=== PATIENT | female | born 1965 | race Caucasian/White ===

== ENCOUNTER → 2016-09-11 | Outpatient (CLI) | payer OTHER | LOC: BMCIMAGING 07:40 | PROVIDERS: ATTEND Nurse Practitioner Adult Health | DX: Z12.31 Encounter for screening mammogram for malignant neoplasm of breast (principal) | CPT/HCPCS: G0202 ==

== ENCOUNTER 2017-03-09 11:39 | Inpatient (IN) | payer OTHER ==
[2017-03-09 12:06] LABS: PLATELET COUNT 254 10^3/uL (150-400)
[2017-03-09] MEDS ORDERED: ONDANSETRON 4 MG/2 ML VIAL ONE (12:08)
[2017-03-09] MEDS ORDERED: HYDROmorphONE/DILAUDID 1 MG/ML INJ ONE (12:09)
[2017-03-09] MEDS ORDERED: NS 1,000 ML IV ONE (12:13)
[2017-03-09] MEDS ORDERED: HYDROmorphONE/DILAUDID 1 MG/ML INJ IVP ONE ×2 (12:13→12:28)
[2017-03-09] MEDS ORDERED: ONDANSETRON 4 MG/2 ML VIAL IVP ONE ×2 (12:14→14:12)
--- NOTE | 2017-03-09 12:28 | EDPHY ---
H & P Stated Complaint: bright red blood BM then abd pain 30 min EPIC [facility] SPECIALIST - Personal History LMP (Females 10-55): Post Menopausal Current Tetanus/Diphtheria Vaccine: Yes Current Tetanus Diphtheria and Acellular Pertussis (TDAP): Yes - Medical/Surgical History Hx Asthma: No Hx Chronic Respiratory Disease: No Hx Diabetes: No Hx Cardiac Disease: No Hx Renal Disease: No Hx Cirrhosis: No Hx Alcoholism: No Hx HIV/AIDS: No Hx Splenectomy or Spleen Trauma: No Other PMH: PMH: angioedema, hypothyriodism, - Social History Smoking Status: Never smoked Time Seen by Provider: 03/09/17 12:07 HPI/ROS: Chief Complaint: Abdominal pain HPI: 51-year-old woman had sudden onset of left lower quadrant abdominal pain this morning. Does not have a history of the same. Is a 1010. There are no aggravating or alleviating factors. She cannot find a position of comfort. She did have a bowel movement with some bright red blood in it this morning as well. No nausea or vomiting. No diarrhea. No urinary urgency or frequency. No melena. No fevers or chills. No chest pain or shortness of breath. ROS: 10 point Review of Systems is negative except as noted in the HPI. PMH: Angioedema, hypothyroidism Social History: No smoking, no alcohol, no recreational drug use Family History: non-contributory Physical Exam: Gen: Awake, Alert, uncomfortable appearing HEENT: Nose: no rhinorrhea Eyes: PERRLA, EOMI Mouth: Moist mucosa Neck: Supple, no JVD Chest: nontender, lungs clear to auscultation Heart: S1, S2 normal, no murmur Abd: Soft, non-tender, no guarding Back: no CVA tenderness, no midline tenderness Ext: no edema, non-tender Skin: no rash Neuro: CN II-XII intact, Sensation grossly intact, Strength 5/5 in bilateral upper and lower extremities (Bebo Ayers) Constitutional: Initial Vital Signs Temperature (C) 36.3 C 03/09/17 11:42 Heart Rate 57 L 03/09/17 11:42 Respiratory Rate 22 H 03/09/17 11:42 Blood Pressure 101/69 03/09/17 11:42 O2 Sat (%) 100 03/09/17 11:42 O2 Delivery Mode Room Air O2 (L/minute) 2 Allergies/Adverse Reactions: No Known Allergies Allergy (Verified 03/09/17 17:12) Home Medications: Medication Instructions Recorded Acetaminophen [Tylenol 325mg (*)] 325 mg PO Q6H PRN 03/09/17 Cetirizine [ZyrTEC 10 mg (*)] 10 mg PO DAILY 03/09/17 Levothyroxine [Synthroid 112 mcg 112 mcg PO DAILY06 03/09/17 (*)] Multivitamins [Multivitamin (*)] 1 each PO DAILY 03/09/17 Tamsulosin HCl [Flomax 0.4 MG (*)] 0.4 mg PO DAILY #30 cap 03/10/17 oxyCODONE IR [Oxycodone Ir (*)] 5 - 10 mg PO Q4 PRN #30 tab 03/10/17 Medical Decision Making - Diagnostics Imaging: Discussed imaging studies w/ foot press operator Radiologist ED Course/Re-evaluation: 3:00 p.m.-this patient was signed over to me at shift change to check the urinalysis. A urinalysis reveals a urinary tract infection. Urine culture sent. Discussed with the patient, she is currently comfortable and the pain is well controlled with Toradol. However, she continues to have multiple episodes of vomiting despite Zofran 4 mg IV x2. Because of persistent vomiting and urinary tract infection associated with obstructive uropathy, this patient will be admitted. Rocephin 1 g IV and Phenergan 12.5 mg IV given. The hospitalist service was consulted for admission. Consulted with ARNULFO Oakley, urology. Urology will consult during admission. (Basilia Cuenca) Patient has a 3-5 mm mid left ureteral stone with moderate hydro and perinephric stranding. Pain is controlled. Still awaiting a urinalysis results to rule out urinary tract infection. Patient signed out to Dr. Cuenca pending urinalysis results. (Bebo Ayers) Differential Diagnosis: Differential diagnosis includes though it is not limited to appendicitis, cholecystitis, diverticulitis, pyelonephritis, bowel perforation, small bowel obstruction. (Basilia Cuenca) - Data Points Laboratory Results: Laboratory Results 03/09/17 11:55 03/09/17 11:55 Medications Given: Discontinued Medications Enoxaparin Sodium (Lovenox) 40 mg SC DAILY TOM Stop: 09/06/17 08:59 Last Admin: 03/10/17 09:43 Dose: 40 mg Fentanyl (Sublimaze) 100 mcg IVP EDNOW ONE Stop: 03/09/17 13:07 Last Admin: 03/09/17 13:08 Dose: 100 mcg Hydromorphone HCl (Dilaudid) 0.5 mg IVP EDNOW ONE Stop: 03/09/17 12:14 Last Admin: 03/09/17 12:16 Dose: 0.5 mg Hydromorphone HCl (Dilaudid) 1 mg IVP EDNOW ONE Stop: 03/09/17 12:29 Last Admin: 03/09/17 12:29 Dose: 1 mg Sodium Chloride (Ns) 1,000 mls @ 0 mls/hr IV ONCE ONE PRN Reason: Wide Open Stop: 03/09/17 12:14 Last Admin: 03/09/17 12:16 Dose: 1,000 mls Ceftriaxone Sodium 1 gm/ (Sterile Water) 10 mls @ 150 mls/hr IV EDNOW ONE PRN Reason: Protocol Stop: 03/09/17 16:33 Last Admin: 03/09/17 17:04 Dose: 10 mls Sodium Chloride (1/2 Ns) 1,000 mls @ 125 mls/hr IV CONT TOM Stop: 09/05/17 17:59 Last Admin: 03/10/17 10:49 Dose: 1,000 mls Ceftriaxone Sodium 1 gm/ (Sterile Water) 10 mls @ 150 mls/hr IV DAILY TOM PRN Reason: Protocol Stop: 04/09/17 08:59 Last Admin: 03/10/17 08:28 Dose: 10 mls Ketorolac Tromethamine (Toradol) 15 mg IVP EDNOW ONE Stop: 03/09/17 12:49 Last Admin: 03/09/17 12:53 Dose: 15 mg Ketorolac Tromethamine (Toradol) 15 mg IVP Q6HRS [facility] Stop: 03/14/17 12:01 Last Admin: 03/10/17 12:19 Dose: 15 mg Levothyroxine Sodium (Synthroid) 112 mcg PO DAILY06 TOM Stop: 09/06/17 05:59 Last Admin: 03/10/17 06:17 Dose: 112 mcg Ondansetron HCl (Zofran) 4 mg IVP EDNOW ONE Stop: 03/09/17 12:15 Last Admin: 03/09/17 12:16 Dose: 4 mg Ondansetron HCl (Zofran) 4 mg IVP EDNOW ONE Stop: 03/09/17 14:13 Last Admin: 03/09/17 14:13 Dose: 4 mg Promethazine HCl (Phenergan) 6.25 mg IVP EDNOW ONE Stop: 03/09/17 16:32 Last Admin: 03/09/17 16:34 Dose: 6.25 mg Tamsulosin HCl (Flomax) 0.4 mg PO DAILY TOM Stop: 09/05/17 17:59 Last Admin: 03/10/17 08:28 Dose: 0.4 mg Departure - Departure Disposition: [facility] Acute Clinical Impression: Kidney stone UTI (urinary tract infection) Qualifiers: Urinary tract infection type: site unspecified Hematuria presence: without hematuria Qualified Code(s): N39.0 - Urinary tract infection, site not specified Vomiting Qualifiers: Vomiting type: unspecified Vomiting Intractability: non-intractable Nausea presence: with nausea Qualified Code(s): R11.2 - Nausea with vomiting, unspecified Condition: Fair
[2017-03-09] MEDS ORDERED: KETOROLAC 15 MG/1 ML SDV IVP ONE (12:48)
[2017-03-09] MEDS ORDERED: fentaNYL 100 MCG/2 ML INJ ONE (13:04)
[2017-03-09] MEDS ORDERED: fentaNYL 100 MCG/2 ML INJ IVP ONE (13:06)
[2017-03-09] MEDS ORDERED: cefTRIAXone 1 GM in STERILE WATER INJ 10 ML IV ONE (16:30)
[2017-03-09] MEDS ORDERED: PROMETHAZINE HCL 25 MG/ML INJ IVP ONE (16:31)
--- NOTE | 2017-03-09 17:46 | PDGENHP ---
History and Physical - Chief Complaint abdominal pain - History of Present Illness 51 y/o female with a history of hypothyroidism, angioedema, and Raynauds presents with left lower abdominal pain. She states it started one hour prior to arrival. It was sudden in onset, sharp, constant, without radiation, and a 10 /10. There are no aggravating or alleviating factors. Associated symptoms are nausea and vomiting. She denies dysuria, hematuria, increased urinary frequency or urgency, fevers, and changes in bowel habits. She denies previous episodes. She reports no personal history of kidney stones but does have a family history of them. In the ED she received Dilaudid/Fentanyl/Toradol and initially has some relief, however her pain returned. History Information - Allergies/Home Medication List Allergies/Adverse Reactions: No Known Allergies Allergy (Verified 03/09/17 17:12) Home Medications: Acetaminophen [Tylenol 325mg (*)] 325 mg PO Q6H PRN 03/09/17 [Last Taken 325MG] Cetirizine [ZyrTEC 10 mg (*)] 10 mg PO DAILY 03/09/17 [Last Taken 03/09/17] Levothyroxine [Synthroid 112 mcg (*)] 112 mcg PO DAILY06 03/09/17 [Last Taken ] Multivitamins [Multivitamin (*)] 1 each PO DAILY 03/09/17 [Last Taken 03/09/17] I have personally reviewed and updated: family history, medical history, social history, surgical history - Past Medical History Additional medical history: burning mouth syndrome - Surgical History Reports: no pertinent surgical hx - Family History Additional family history: kidney stones - Social History Smoking Status: Never smoked Alcohol Use: Occasionally Drug Use: None Review of Systems Review of Systems: ROS: 10pt was reviewed & negative except for what was stated in HPI & below Constitutional: Denies: chills, fever Physical Exam Physical Exam: Temp Pulse Resp BP Pulse Ox 36.3 C 63 16 110/65 95 03/09/17 12:00 03/09/17 17:28 03/09/17 17:28 03/09/17 17:28 03/09/17 17:28 Constitutional: no apparent distress, appears nourished, not in pain Eyes: PERRL, anicteric sclera, EOMI Ears, Nose, Mouth, Throat: moist mucous membranes, hearing normal, ears appear normal, no oral mucosal ulcers Cardiovascular: regular rate and rhythym, no murmur, rub, or gallop, No edema Respiratory: no respiratory distress, no rales or rhonchi, clear to auscultation Gastrointestinal: normoactive bowel sounds, soft, non-tender abdomen, no palpable masses, No guarding, No rebound Genitourinary: no bladder fullness, no bladder tenderness Skin: warm, normal color, no rashes or abrasions, no fluctuance, no induration, No mottled Musculoskeletal: full muscle strength, no muscle tenderness, normal joint ROM, no joint effusions Neurologic: AAOx3, CN II-XII Intact, No facial droop Psychiatric: interacting appropriately, not anxious, not encephalopathic, thought process linear Lymph, Heme, Immunologic: no cervical LAD, no supraclavicular LAD Lab Data & Imaging Review 03/09/17 11:55 03/09/17 11:55 WBC 7.99 10^3/uL (3.80-9.50) 03/09/17 11:55 RBC 4.36 10^6/uL (4.18-5.33) 03/09/17 11:55 Hgb 14.4 g/dL (12.6-16.3) 03/09/17 11:55 Hct 39.6 % (38.0-47.0) 03/09/17 11:55 MCV 90.8 fL (81.5-99.8) 03/09/17 11:55 MCH 33.0 pg (27.9-34.1) 03/09/17 11:55 MCHC 36.4 g/dL (32.4-36.7) 03/09/17 11:55 RDW 11.8 % (11.5-15.2) 03/09/17 11:55 Plt Count 254 10^3/uL (150-400) 03/09/17 11:55 MPV 9.4 fL (8.7-11.7) 03/09/17 11:55 Neut % (Auto) 51.7 % (39.3-74.2) 03/09/17 11:55 Lymph % (Auto) 37.2 % (15.0-45.0) 03/09/17 11:55 [place] % (Auto) 8.1 % (4.5-13.0) 03/09/17 11:55 Eos % (Auto) 1.6 % (0.6-7.6) 03/09/17 11:55 Baso % (Auto) 1.3 % (0.3-1.7) 03/09/17 11:55 Nucleat RBC Rel Count 0.0 % (0.0-0.2) 03/09/17 11:55 Absolute Neuts (auto) 4.13 10^3/uL (1.70-6.50) 03/09/17 11:55 Absolute Lymphs (auto) 2.97 10^3/uL (1.00-3.00) 03/09/17 11:55 Absolute Monos (auto) 0.65 10^3/uL (0.30-0.80) 03/09/17 11:55 Absolute Eos (auto) 0.13 10^3/uL (0.03-0.40) 03/09/17 11:55 Absolute Basos (auto) 0.10 10^3/uL (0.02-0.10) 03/09/17 11:55 Absolute Nucleated RBC 0.00 10^3/uL (0-0.01) 03/09/17 11:55 Immature Gran % 0.1 % (0.0-1.1) 03/09/17 11:55 Immature Gran # 0.01 10^3/uL (0.00-0.10) 03/09/17 11:55 Sodium 141 mEq/L (135-145) 03/09/17 11:55 Potassium 4.0 mEq/L (3.5-5.2) 03/09/17 11:55 Chloride 102 mEq/L (97-110) 03/09/17 11:55 Carbon Dioxide 24 mEq/l (22-31) 03/09/17 11:55 Anion Gap 15 mEq/L (8-16) 03/09/17 11:55 BUN 21 mg/dL (7-23) 03/09/17 11:55 Creatinine 0.9 mg/dL (0.6-1.0) 03/09/17 11:55 Estimated GFR > 60 03/09/17 11:55 Glucose 114 mg/dL (70-100) H 03/09/17 11:55 Calcium 10.0 mg/dL (8.5-10.4) 03/09/17 11:55 Beta HCG, Qual NEGATIVE 03/09/17 11:55 Urine Color YELLOW 03/09/17 15:30 Urine Appearance MODERATELY TURBID 03/09/17 15:30 Urine pH 7.0 (5.0-7.5) 03/09/17 15:30 Ur Specific [place] 1.025 (1.002-1.030) 03/09/17 15:30 Urine Protein 1+ (NEGATIVE) H 03/09/17 15:30 Urine Ketones 1+ (NEGATIVE) H 03/09/17 15:30 Urine Blood 3+ (NEGATIVE) H 03/09/17 15:30 Urine Nitrate NEGATIVE (NEGATIVE) 03/09/17 15:30 Urine Bilirubin NEGATIVE (NEGATIVE) 03/09/17 15:30 Urine Urobilinogen 2.0 EU (0.2-1.0) H 03/09/17 15:30 Ur Leukocyte Esterase NEGATIVE (NEGATIVE) 03/09/17 15:30 Urine RBC 50-182 /hpf (0-3) H 03/09/17 15:30 Urine WBC 50-182 /hpf (0-3) H 03/09/17 15:30 Ur Epithelial Cells TRACE /lpf (NONE-1+) 03/09/17 15:30 Urine Bacteria 1+ /hpf (NONE SEEN) H 03/09/17 15:30 Urine Glucose NEGATIVE (NEGATIVE) 03/09/17 15:30 Imaging Review: Impression: 1. Moderate left hydroureteronephrosis due to 3 x 4 x 5 mm calculus in the proximal to mid left ureter. Mild stranding and fluid surround the dilated renal pelvis and proximal left ureter. 2. No nephrolithiasis or right- sided calculi. 3. Constipation. Visualized and Interpreted Chest x-ray results: Yes Assessment & Plan Assessment: 51 y/o female presenting with: # Complicated UTI with 3 x 4 x 5 mm calculus in the proximal to mid left ureter with mild stranding and fluid surround the dilated renal pelvis and proximal left ureter. Plan: -urine culture -Start Rocephin 1gm IV [id number] -IV fluids -Supportive care with IV narcotics/antiemetics/toradol -urology was consulted by ED # Nausea and vomiting due to above Plan: -admit to inpatient
[2017-03-09] MEDS ORDERED: PROMETHAZINE HCL 25 MG/ML INJ IVP PRN (17:54)
[2017-03-09] MEDS ORDERED: HYDROmorphONE/DILAUDID 2 MG/ML INJ IVP PRN (17:54)
[2017-03-09] MEDS ORDERED: oxyCODONE IR 5 MG TAB PO PRN (17:54)
[2017-03-09] MEDS ORDERED: ACETAMINOPHEN 325 MG TAB PO PRN (17:54)
[2017-03-09] MEDS ORDERED: ONDANSETRON 4 MG/2 ML VIAL IVP PRN (17:54)
--- NOTE | 2017-03-09 18:21 | PDMN ---
Medical Necessity Medical necessity: C/M review: patient meets INPT criteria under [facility] M-320 Renal colic and kidney stones: Acute and persistent complicated urinary tract infection with 3 x 4 x 5 mm calculus in the proximal to mid left ureter with mild stranding and fluid surround the dilated renal pelvis and proximal left ureter on CT requiring planned Urology consult, urine culture, ongoing IV Ceftriaxone QD, IV 1/2 NS infusion 125 ml/hr., IV Dilaudid. comorbid hypothyroidism, angioedema, Raynauds, burning mouth syndrome. MD anticipates > 2 MN LOS for ongoing med for eval and TX of above.
[2017-03-09] MEDS: 1/2 NS 1,000 ML IV SCH (18:30)
[2017-03-09] MEDS: TAMSULOSIN HCL 0.4 MG CAP PO SCH (18:36)
--- NOTE | 2017-03-09 21:42 | GCON ---
[f rep st] CONSULTATION ADMISSION DIAGNOSIS: Left ureteral calculus with left-sided hydronephrosis. HISTORY OF PRESENT ILLNESS: This is a 51-year-old lady who is admitted because of unrelenting pain. Was seen in the emergency room and appropriate workup revealed a proximal ureteral calculus with hyd ronephrosis on the left side with some mild perinephric stranding. She had lab work that showed a cr eatinine of 0.9, a calcium of 10, white count of 14,400, hematocrit 39.6, glucose 114. CO2 was 24 an d BUN was 21. She had a urinalysis that showed nitrate negative with positive blood and negative glu cose. Leukocytes and white blood cells were elevated. Leukocyte esterase was negative and white blo od cell count may have misconstrued above, but it was 7.99 on admission, her hematocrit 39.6, and she was admitted to the hospitalist for pain control, hydration and antibiotics because there is a presu med UTI which is not totally clear on the urinalysis. REVIEW OF SYSTEMS: Negative 10-point. PAST MEDICAL HISTORY: Angioedema, hypothyroidism. SOCIAL HISTORY: Nonsmoker, nondrinker, and no recreational drug use. FAMILY HISTORY: Noncontributory. PHYSICAL EXAMINATION: VITAL SIGNS: Stable. CHEST: Clear. HEART: Regular rate and rhythm. ABDOM EN: Soft. Mild left CVA tenderness. EXTREMITIES: Lower extremities are normal. PLAN: At the present time I have reviewed the CAT scan and discussed with her the options at the pre sent time. Will hydrate her overnight for pain control with the plan of doing ureteroscopy on Saturd ay unless she would pass the stone spontaneously. I think the stone has been there for some time bec ause of the dilation of the proximal ureter in the renal pelvis. I tried to answer questions to the best of my ability. She is to undergo consultation as noted. /[id number]/MODL
[2017-03-10] MEDS: KETOROLAC 15 MG/1 ML SDV IVP SCH ×3 (00:08→12:19)
[2017-03-10] MEDS: 1/2 NS 1,000 ML IV SCH ×2 (02:52→10:49)
[2017-03-10 04:39] LABS: PLATELET COUNT 162 10^3/uL (150-400)
[2017-03-10] MEDS ORDERED: LEVOTHYROXINE 112 MCG TAB PO SCH (06:00)
[2017-03-10] MEDS: TAMSULOSIN HCL 0.4 MG CAP PO SCH (08:28)
[2017-03-10 08:33] VITALS: RESP 18
[2017-03-10] MEDS ORDERED: ENOXAPARIN 40 MG/0.4 ML SYR SC SCH (09:00)
[2017-03-10] MEDS ORDERED: cefTRIAXone 1 GM in STERILE WATER INJ 10 ML IV SCH (09:00)
[2017-03-10 12:15] VITALS: BP 98/61; PULSE 71; TEMP 98.3; O2SAT 97
--- NOTE | 2017-03-10 16:02 | ASDISCHSUM ---
Discharge Information Plan Status:Home with No Needs Medically Cleared to Leave:03/09/2017 Discharge Date:03/10/2017 01:51 PM CM D/C Disposition:Home, Routine, Self-Care ADT D/C Disposition:Home, Routine, Self-Care Projected Discharge Date:03/10/2017 01:51 PM Transportation at D/C:Family Discharge Delay Reason: Follow-Up Date:03/10/2017 01:51 PM Discharge Slot: Final Diagnosis: Placement Information Patient Contact Information Contact Name:QUIN Relationship: Address:[address] City:[place] Alternate Phone: State/Zip Code:[place] [address] Email: Financial Information Financial Class:HMO and PPO Plans Primary Plan Desc:[employer] [place] [employer] Primary Plan Number:[id number] Secondary Plan Desc: Secondary Plan Number: Assessment Information Intervention Information
--- NOTE | 2017-03-10 20:35 | GDS ---
[f rep st] DISCHARGE SUMMARY DISCHARGE DIAGNOSES: 1. Acute ureterolithiasis. 2. Left hydroureteronephrosis. HISTORY OF PRESENT ILLNESS: A 51-year-old female who presents with complaints of abdominal pain. Fo r details of the patient's initial presentation, please see the history and physical dated 03/09/2016 . CONSULTATIVE SERVICES: Urology, Dr. Mullen. PROCEDURES: CT of the abdomen that showed left hydroureteronephrosis. HOSPITAL COURSE: The patient was admitted, hydrated, given IV pain medications, as well as empiric a ntibiotics. Her urine was sent for culture, and she was seen by Urology. The plan was to attempt st one passage with IV fluids, Flomax, and supportive care. The patient continued to have ongoing pain, and she would undergo ureteroscopy. The patient reports that over the course of the evening, her pa in completely resolved. Urology saw the patient morning after presentation, and recommended disposit ion with Flomax and pain medications. They did not feel the initial analysis of urine was strictly c onsistent with infection. We will not treat with antibiotics at discharge. Urology can follow the u rine culture in the outpatient setting next week. MEDICATIONS AT THE TIME OF TRANSFER: Please reference med rec printed on 03/10/2017. FOLLOWUP APPOINTMENTS: Dr. Mullen from Urology for her first post disposition followup. PENDING STUDIES: Urine culture, which is preliminary, no growth to date. TIME: I spent greater than 30 minutes in the planning and coordination of this discharge. /[id number]/MODL
== END 2017-03-10 13:51 | disposition home or self-care (01) | DRG 694 ==
LOC: F1N 17:33 → OBSVTOIN 17:55
PROVIDERS: ADMIT Family Medicine; ATTEND Hospitalist
DX: N13.2 Hydronephrosis with renal and ureteral calculous obstruction (principal); E03.9 Hypothyroidism, unspecified; I73.00 Raynaud's syndrome without gangrene; K14.6 Glossodynia; D84.1 Defects in the complement system
CPT/HCPCS: 96374; J0696; J1170; J1650; J1885; J2405; J2550; J3010

== ENCOUNTER → 2017-04-19 | Outpatient (CLI) | payer OTHER | LOC: BMCIMAGING 08:06 | PROVIDERS: ATTEND Urology | DX: Z13.89 Encounter for screening for other disorder (principal) ==

== ENCOUNTER → 2017-04-20 | Outpatient (CLI) | payer OTHER | LOC: BMCIMAGING 13:36 | PROVIDERS: ATTEND Urology | DX: N13.2 Hydronephrosis with renal and ureteral calculous obstruction (principal) ==

== ENCOUNTER → 2017-04-25 | Outpatient (CLI) | payer OTHER | LOC: BMCIMAGING 08:15 | PROVIDERS: ATTEND Urology | DX: N20.1 Calculus of ureter (principal) ==

== ENCOUNTER → 2017-06-04 | Outpatient (CLI) | payer OTHER | LOC: BMCIMAGING 07:19 | PROVIDERS: ATTEND Urology | DX: Z87.442 Personal history of urinary calculi (principal) ==

== ENCOUNTER → 2017-12-05 | Outpatient (CLI) | payer OTHER | LOC: BMCIMAGING 08:42 | PROVIDERS: ATTEND Urology | DX: Z09 Encounter for follow-up examination after completed treatment for conditions other than malignant neoplasm (principal); K59.00 Constipation, unspecified; Z87.442 Personal history of urinary calculi ==